=== PATIENT | male | born 1995 | race Caucasian/White ===

== ENCOUNTER 2023-03-04 13:03 | Emergency (ER) | payer OTHER ==
[~2023-03-04] VITALS: Ht 180.3 cm; Wt 102.1 kg
[2023-03-04 13:25] VITALS: BP 139/86
[2023-03-04] MEDS ORDERED: Seroquel50 MG PO (13:40)
[2023-03-04] MEDS ORDERED: CATAPRES0.2 M1 PO (13:40)
[2023-03-04] MEDS ORDERED: LAMO25 PO (13:40)
== END 2023-03-04 14:00 | disposition home or self-care (01) ==
LOC: ER 13:03
DX: F31.9 Bipolar disorder, unspecified (principal); F41.9 Anxiety disorder, unspecified; F43.10 Post-traumatic stress disorder, unspecified; Z76.0 Encounter for issue of repeat prescription
CPT/HCPCS: 99281

== ENCOUNTER 2023-08-05 10:11 | Emergency (ER) | payer OTHER ==
[~2023-08-05] VITALS: Ht 180.3 cm; Wt 90.7 kg
[~2023-08-05 10:11] MED LIST: CATAPRES0.2 M1 PO; LAMO25 PO; Seroquel50 MG PO
[2023-08-05 10:45] VITALS: BP 131/93
[2023-08-05] MEDS ORDERED: ALBU90OI INH (10:46)
== END 2023-08-05 10:48 | disposition home or self-care (01) ==
LOC: ER 10:11
DX: Z76.0 Encounter for issue of repeat prescription (principal); J45.909 Unspecified asthma, uncomplicated; Z79.899 Other long term (current) drug therapy
CPT/HCPCS: 99281

== ENCOUNTER 2023-10-24 16:34 | Emergency (ER) | payer OTHER ==
[~2023-10-24] VITALS: Ht 180.3 cm; Wt 102.1 kg
[~2023-10-24 16:34] MED LIST changes: +ALBU90OI INH
[2023-10-24 16:50] VITALS: BP 145/81
[2023-10-24] MEDS ORDERED: CEPH500 PO (17:49)
[2023-10-24] MEDS ORDERED: ONDA4ODT MM (17:49)
== END 2023-10-24 17:46 | disposition home or self-care (01) ==
LOC: ER 16:34
DX: L03.115 Cellulitis of right lower limb (principal); F31.9 Bipolar disorder, unspecified; Z79.899 Other long term (current) drug therapy
CPT/HCPCS: 99282

== ENCOUNTER 2023-10-26 21:27 | Emergency (ER) | payer OTHER ==
[~2023-10-26] VITALS: Ht 180.3 cm; Wt 102.1 kg
[~2023-10-26 21:27] MED LIST changes: +CEPH500 PO; +ONDA4ODT MM
[2023-10-26 21:50] VITALS: BP 138/102
[2023-10-26] MEDS ORDERED: CEPH500 PO (23:36)
[2023-10-26] MEDS ORDERED: DOXY100 PO (23:36)
[2023-10-26] MEDS ORDERED: ALBU90OI INH (23:36)
== END 2023-10-26 23:44 | disposition home or self-care (01) ==
LOC: ER 21:27
DX: L03.115 Cellulitis of right lower limb (principal); Z79.899 Other long term (current) drug therapy
CPT/HCPCS: 99283; A9270

== ENCOUNTER 2024-08-25 11:24 | Emergency (ER) | payer OTHER ==
[~2024-08-25] VITALS: Ht 177.8 cm; Wt 102.1 kg
[~2024-08-25 11:24] MED LIST changes: +DOXY100 PO
[2024-08-25 11:48] VITALS: BP 144/90
== END 2024-08-25 12:56 | disposition home or self-care (01) ==
LOC: ER 11:24
DX: S80.02XA Contusion of left knee, initial encounter (principal); W18.30XA Fall on same level, unspecified, initial encounter; Y99.0 Civilian activity done for income or pay; Z79.899 Other long term (current) drug therapy
CPT/HCPCS: 73562-LT; 99283-25